=== PATIENT | male | born 1975 | race African-American/Black ===

== ENCOUNTER 2016-06-02 09:10 | Day surgery (SDC) | payer MEDICAID ==
[2016-06-02] MEDS ORDERED: LACTATED RINGERS 1,000 ML IV ONE (09:59)
[2016-06-02] MEDS ORDERED: PROPOFOL 200 MG/20 ML VIAL IVP ONE (10:50)
[2016-06-02] MEDS ORDERED: MIDAZOLAM 2 MG/2 ML VIAL IVP ONE (10:50)
[2016-06-02] MEDS ORDERED: LIDOCAINE-MPF 2% 5 ML VIAL IM ONE (10:50)
== END 2016-06-02 09:11 | disposition home or self-care (01) ==
PROC: 0DBH8ZX Excision of Cecum, Via Natural or Artificial Opening Endoscopic, Diagnostic (ICD-10-PCS; principal; 2016-06-02 10:30)
DX: K57.30 Diverticulosis of large intestine without perforation or abscess without bleeding (principal); R19.7 Diarrhea, unspecified; K92.1 Melena; R10.32 Left lower quadrant pain; K64.8 Other hemorrhoids; I10 Essential (primary) hypertension; G47.30 Sleep apnea, unspecified; Z87.891 Personal history of nicotine dependence; E66.01 Morbid (severe) obesity due to excess calories; Z68.43 Body mass index [BMI] 50.0-59.9, adult
CPT/HCPCS: 45380; J7120

== ENCOUNTER 2016-07-30 13:46 | Emergency (ER) | payer MEDICAID ==
[2016-07-30] MEDS ORDERED: HYDROmorphone 1 MG/ML SYRINGE IVP STA (14:40)
[2016-07-30] MEDS ORDERED: LORazepam 2 MG/ML SYRINGE IVP STA (14:49)
[2016-07-30] MEDS ORDERED: HYDROmorphone 1 MG/ML SYRINGE ONE (14:52)
[2016-07-30] MEDS ORDERED: LORazepam 2 MG/ML SYRINGE ONE (14:53)
[2016-07-30] MEDS ORDERED: IOPAMIDOL-300 100 ML VIAL IVP ONE (15:42)
[2016-07-30] MEDS ORDERED: DICYCLOMINE 10 MG CAPSULE PO STA (16:48)
[2016-07-30] MEDS ORDERED: oxyCODONE 5 MG TABLET PO STA (16:48)
[2016-07-30] MEDS ORDERED: DICYCLOMINE 10 MG CAPSULE PO ONE (16:55)
[2016-07-30] MEDS ORDERED: oxyCODONE 5 MG TABLET ONE (16:55)
== END 2016-07-30 18:40 | disposition home or self-care (01) ==
DX: R07.89 Other chest pain (principal); R10.84 Generalized abdominal pain; I10 Essential (primary) hypertension; G47.30 Sleep apnea, unspecified; M10.9 Gout, unspecified; F17.200 Nicotine dependence, unspecified, uncomplicated; Z87.19 Personal history of other diseases of the digestive system
CPT/HCPCS: 36415; 71275; 74177; 80053; 83690; 84484; 85025; 93005; 93010; 96374; 96375; 99284; A9270; J1170; J2060; Q9967

== ENCOUNTER 2016-08-14 15:12 | Outpatient (CLI) | payer MEDICAID | END 2016-08-14 15:13 | disposition critical access hospital (66) | DX: M54.9 Dorsalgia, unspecified (principal); V87.8XXA Person injured in other specified noncollision transport accidents involving motor vehicle (traffic), initial encounter; Y92.413 State road as the place of occurrence of the external cause | CPT/HCPCS: A0425; A0429 ==

== ENCOUNTER 2016-08-14 15:35 | Emergency (ER) | payer MEDICAID ==
[2016-08-14] MEDS ORDERED: SODIUM CHLORIDE 0.9% 1,000 ML IV ONE (15:59)
[2016-08-14] MEDS ORDERED: ONDANSETRON 4 MG/2 ML VIAL IVP STA (15:59)
[2016-08-14] MEDS ORDERED: LORazepam 2 MG/ML SYRINGE IVP STA (15:59)
[2016-08-14] MEDS ORDERED: LORazepam 2 MG/ML SYRINGE ONE (16:06)
[2016-08-14] MEDS ORDERED: ONDANSETRON 4 MG/2 ML VIAL ONE (16:07)
[2016-08-14] MEDS ORDERED: IOPAMIDOL-300 100 ML VIAL IVP ONE (17:18)
[2016-08-14] MEDS ORDERED: KETOROLAC 60 MG/2 ML VIAL IVP STA (17:33)
[2016-08-14] MEDS ORDERED: KETOROLAC 30 MG/ML VIAL ONE (17:40)
== END 2016-08-14 19:29 | disposition home or self-care (01) ==
DX: S30.0XXA Contusion of lower back and pelvis, initial encounter (principal); V48.6XXA Car passenger injured in noncollision transport accident in traffic accident, initial encounter; Y92.488 Other paved roadways as the place of occurrence of the external cause; G40.909 Epilepsy, unspecified, not intractable, without status epilepticus; I10 Essential (primary) hypertension; G47.30 Sleep apnea, unspecified; Z87.19 Personal history of other diseases of the digestive system; F17.200 Nicotine dependence, unspecified, uncomplicated
CPT/HCPCS: 36415; 70450; 71260; 72125; 74177; 80053; 81003; 83690; 85025; 85610; 85730; 93005; 93010; 96361; 96374; 96375; 99284; 99285; J2060; Q9967

== ENCOUNTER 2016-11-09 15:31 | Emergency (ER) | payer MEDICAID ==
[2016-11-09 15:47] VITALS: BP 150/97
[2016-11-09] MEDS ORDERED: LORazepam 0.5 MG TABLET PO STA (16:35)
--- NOTE | 2016-11-09 16:36 | ED Physician Documentation ---
PD HPI MHE - Stated complaint Stated Complaint: MHE - Chief complaint Chief Complaint: MHE - History obtained from History obtained from: Patient - History of Present Illness Primary symptom: Other (40-year-old gentleman with schizoaffective disorder presents with some delusions and is having marital difficulties. Denies suicidal ideation.) Review of Systems Constitutional: denies: Fever, Chills Nose: reports: Reviewed and negative Cardiac: denies: Chest pain / pressure, Palpitations Respiratory: denies: Dyspnea, Cough PD PAST MEDICAL HISTORY - Past Medical History Past Medical History: Yes Cardiovascular: Hypertension Respiratory: None, Sleep apnea Neuro: CVA, Seizure disorder Endocrine/Autoimmune: None GI: None, Diverticulitis : None HEENT: None Psych: Depression, Anxiety, Schizophrenia Musculoskeletal: None, Gout, Other Derm: None - Past Surgical History Past Surgical History: Yes General: Cholecystectomy - Present Medications Home Medications: Ambulatory Orders Medication Instructions Recorded Confirmed Levetiracetam [Keppra] 500 mg ORAL BID 04/07/15 11/09/16 Lisinopril 40 mg ORAL DAILY 04/07/15 11/09/16 QUEtiapine [SEROquel] 200 mg PO BID 11/04/15 11/09/16 cloNIDine [Catapres] 0.1 mg PO BID 11/04/15 11/09/16 Polyethylene Glycol 3350 [Miralax] 17 gm PO DAILY #14 packet 07/30/16 11/09/16 - Allergies Allergies/Adverse Reactions: Allergies Allergy/AdvReac Type Severity Reaction Status Date / Time No Known Drug Allergies Allergy Verified 08/14/16 15:45 - Social History Does the pt smoke?: Yes Smoking Status: Current every day smoker Does the pt drink ETOH?: No Does the pt have substance abuse?: No - Immunizations Immunizations are current?: Yes Immunizations: TDAP current <10years - POLST Patient has POLST: No PD ED PE NORMAL - Vitals Vital signs reviewed: Yes - General General: Alert and oriented X 3, Other (Pretty normal affect, somewhat delusional, complains of people breaking into his house and what not. Very cooperative though.) - HEENT HEENT: PERRL, EOMI - Neuro Neuro: Alert and oriented X 3, splunk developer 2-12 intact, No motor deficit, No sensory deficit, Normal speech Results - Vitals Vitals: Vital Signs - 24 hr 11/09/16 15:41 Temperature 35.7 C L Heart Rate 108 H Respiratory 18 Rate Blood Pressure 150/97 H O2 Saturation 99 Oxygen O2 Source Room air PD MEDICAL DECISION MAKING - ED course ED course: 40-year-old gentleman with schizoaffective disorder, recent decrease in his Seroquel dosing, and he is a little hypervigilant and delusional, but is not suicidal and the agrees he seems okay and can go home, seen extensively by the healthcare social worker and outpatient follow-up advised. Departure - Departure Disposition: Home, Self Care Clinical Impression: Schizoaffective disorder Qualifiers: Schizoaffective disorder type: bipolar Qualified Code(s): F25.0 - Schizoaffective disorder, bipolar type Condition: Good Record reviewed to determine appropriate education?: Yes Instructions: ED Schizo Affective Disorder Comments: Call your doctor to arrange a follow-up appointment, make the next available appointment. In the interim, return anytime if worse or if new symptoms develop. Your blood pressure was elevated today on check into the emergency department. This does not mean that you have hypertension, it is a common phenomenon to come to the emergency department and have elevated blood pressure. I recommend that she see her primary care physician within the week to have it rechecked when you are feeling better.
[2016-11-09] MEDS ORDERED: LORazepam 0.5 MG TABLET ONE (16:39)
== END 2016-11-09 17:04 | disposition home or self-care (01) ==
LOC: ED 15:31
DX: F25.0 Schizoaffective disorder, bipolar type (principal); I10 Essential (primary) hypertension; F17.200 Nicotine dependence, unspecified, uncomplicated; Z86.73 Personal history of transient ischemic attack (TIA), and cerebral infarction without residual deficits
CPT/HCPCS: 99283; A9270

== ENCOUNTER 2018-10-19 10:44 | Outpatient (CLI) | payer MEDICAID | END 2018-10-19 10:45 | disposition critical access hospital (66) | LOC: EMS 10:44 | PROVIDERS: ATTEND Surgery | DX: R06.00 Dyspnea, unspecified (principal); F41.9 Anxiety disorder, unspecified; R51 Headache | CPT/HCPCS: A0425; A0429; A0999 ==

== ENCOUNTER 2018-10-19 11:04 | Emergency (ER) | payer MEDICAID ==
[2018-10-19 11:34] LABS: BASOPHILS % (AUTO) 0.4 %; EOSINOPHILS # (AUTO) 0.1 10^3/uL (0.0-0.7); EOSINOPHILS % (AUTO) 1.9 %; HGB - HEMOGLOBIN 13.9 g/dL (14.0-18.0); LYMPHOCYTES # (AUTO) 2.1 10^3/uL (1.5-3.5); LYMPHOCYTES % (AUTO) 27.8 %; MEAN CORPUSCULAR HGB CONC 32.3 g/dL (32.0-36.0); MEAN CORPUSCULAR VOLUME 86.7 fL (80.0-94.0); MEAN PLATELET VOLUME 11.5 fL (7.4-11.4); MONOCYTES # (AUTO) 1.1 10^3/uL (0.0-1.0); MONOCYTES % (AUTO) 14.7 %; NEUTROPHILS % (AUTO) 54.3 %; PLT - PLATELET COUNT 257 10^3/uL (130-450); RED BLOOD COUNT 4.96 10^6/uL (4.70-6.10); RED CELL DISTRIBUTION WIDTH 13.5 % (12.0-15.0); WHITE BLOOD COUNT 7.4 x10^3/uL (4.8-10.8)
[2018-10-19 12:06] LABS: ACETAMINOPHEN < 10 ug/mL (10-30); ALBUMIN 4.1 g/dL (3.2-5.5); ALBUMIN/GLOBULIN RATIO 1.2 (1.0-2.2); ALKALINE PHOSPHATASE 74 IU/L (42-121); ALT ALANINE AMINOTRANSFERASE 21 IU/L (10-60); AST ASPARTATE AMINOTRANSFERASE 15 IU/L (10-42); BILIRUBIN,TOTAL 1.1 mg/dL (0.2-1.0); BUN - BLOOD UREA NITROGEN 10 mg/dL (6-20); CALCIUM 8.7 mg/dL (8.5-10.3); CARBON DIOXIDE - CO2 25 mmol/L (21-32); CHLORIDE 101 mmol/L (101-111); CREATININE 0.8 mg/dL (0.6-1.2); GFR - MDRD 129 (>89); GLUCOSE 129 mg/dL (70-100); LIPASE 26 U/L (22-51); SALICYLATE < 6.0 mg/dL; SODIUM 139 mmol/L (135-145); TOTAL PROTEIN 7.5 g/dL (6.7-8.2)
[2018-10-19 12:08] VITALS: BP 178/110
[2018-10-19 12:46] LABS: MUDS CUTOFF CONCENTRATIONS CUTOFF CONC BELOW:
[2018-10-19 12:47] LABS: BILIRUBIN,URINE NEGATIVE (NEGATIVE); GLUCOSE, URINE (UA) NEGATIVE (NEGATIVE); KETONES,URINE (UA) NEGATIVE (NEGATIVE); LEUKOCYTE ESTERASE, URINE NEGATIVE (NEGATIVE); NITRITE,URINE NEGATIVE (NEGATIVE); OCCULT BLOOD,URINE NEGATIVE (NEGATIVE); PH,URINE 6.5 PH (5.0-7.5); PROTEIN,URINE NEGATIVE (NEGATIVE); UROBILINOGEN,URINE 0.2 (NORMAL) E.U./dL (NORMAL)
[2018-10-19 12:48] LABS: CLARITY,URINE CLEAR (CLEAR)
[2018-10-19 13:08] LABS: AMPHETAMINE SCREEN,URINE NEGATIVE (NEGATIVE); BENZODIAZEPINES SCREEN, URINE NEGATIVE (NEGATIVE); COCAINE SCREEN URINE NEGATIVE (NEGATIVE); METHADONE SCREEN, URINE NEGATIVE (NEGATIVE); METHAMPHETAMINES SCREEN, URINE POSITIVE (NEGATIVE); OPIATE SCREEN, URINE NEGATIVE (NEGATIVE); OXYCODONE SCREEN, URINE NEGATIVE (NEGATIVE); PROPOXYPHENE SCREEN, URINE NEGATIVE (NEGATIVE); TRICYCLIC ANTIDEPRESSANT,URINE POSITIVE (NEGATIVE)
--- NOTE | 2018-10-19 13:29 | ED Physician Documentation ---
PD HPI MHE - Stated complaint Stated Complaint: ANXIETY ATTACK - Chief complaint Chief Complaint: MHE - History of Present Illness Primary symptom: Anxiety Timing - onset: How many hours ago (Just prior to arrival.) - Additional information Additional information: The patient is a 42-year-old male with history of schizophrenia, pseudoseizures, and hypertension, who presents via ambulance for mental health evaluation. Just prior to arrival the patient became uncontrollably agitated. He tells me, "I had an anxiety attack." There is reportedly stress in the home, with the patie nt stating he has been living with his ex- who currently has a boyfriend. He reports that yesterday his ex-'s boyfriend gave him an unknown pill to help "calm me down." It is unclear what specifically triggered the episode today. Review of Systems Constitutional: denies: Fever Nose: denies: Congestion Throat: denies: Sore throat Cardiac: denies: Chest pain / pressure Respiratory: denies: Dyspnea, Cough GI: denies: Abdominal Pain, Nausea, Vomiting : denies: Dysuria Skin: denies: Lesions Musculoskeletal: denies: Back pain Neurologic: denies: Focal weakness, Numbness Psychiatric: reports: Anxiety. denies: Suicidal, Homicidal PD PAST MEDICAL HISTORY - Past Medical History Cardiovascular: Hypertension Respiratory: Sleep apnea Endocrine/Autoimmune: None GI: None, Diverticulitis : None HEENT: None Psych: Depression, Anxiety, Schizophrenia Musculoskeletal: None, Gout, Other Derm: None - Past Surgical History Past Surgical History: Yes General: Cholecystectomy - Present Medications Home Medications: Ambulatory Orders Medication Instructions Recorded Confirmed Levetiracetam [Keppra] 500 mg ORAL BID 04/07/15 11/09/16 Lisinopril 40 mg ORAL DAILY 04/07/15 11/09/16 QUEtiapine [SEROquel] 200 mg PO BID 11/04/15 11/09/16 cloNIDine [Catapres] 0.1 mg PO BID 11/04/15 11/09/16 Polyethylene Glycol 3350 [Miralax] 17 gm PO DAILY #14 packet 07/30/16 11/09/16 - Allergies Allergies/Adverse Reactions: Allergies Allergy/AdvReac Type Severity Reaction Status Date / Time No Known Drug Allergies Allergy Verified 10/19/18 11:12 - Social History Does the pt smoke?: Yes Smoking Status: Current every day smoker Does the pt drink ETOH?: No Does the pt have substance abuse?: No - Immunizations Immunizations are current?: Yes Immunizations: TDAP current <10years - POLST Patient has POLST: No PD ED PE NORMAL - Vitals Vital signs reviewed: Yes (hypertensive) - General General: Alert and oriented X 3, Well developed/nourished, Other (Obese) - HEENT HEENT: Atraumatic, PERRL, EOMI, Pharynx benign - Neck Neck: Supple, no meningeal sign, No adenopathy - Cardiac Cardiac: RRR - Respiratory Respiratory: No respiratory distress, Clear bilaterally - Abdomen Abdomen: Soft, Non tender - Back Back: No spinal TTP - Derm Derm: No rash - Extremities Extremities: No tenderness to palpate, No edema - Neuro Neuro: Alert and oriented X 3, No motor deficit, No sensory deficit, Normal spe ech PD ED PE EXPANDED - Psych Psych: Agitated (Initially agitated, but became calm after about one half hour in the emergency department.). No: Suicidal, Homicidal Results - Vitals Vitals: Oxygen O2 Source Room air - Labs Labs: Laboratory Tests 10/19/18 10/19/18 10/19/18 11:13 11:13 11:13 WBC 7.4 RBC 4.96 Hgb 13.9 L Hct 43.0 MCV 86.7 MCH 28.0 MCHC 32.3 RDW 13.5 Plt Count 257 MPV 11.5 H Neut # (Auto) 4.0 Lymph # (Auto) 2.1 Giles # (Auto) 1.1 H Eos # (Auto) 0.1 Baso # (Auto) 0.0 Absolute Nucleated RBC 0.00 Nucleated RBC % 0.0 Sodium 139 Potassium 3.4 L Chloride 101 Carbon Dioxide 25 Anion Gap 13.0 BUN 10 Creatinine 0.8 Estimated GFR (MDRD) 129 Glucose 129 H Calcium 8.7 Total Bilirubin 1.1 H AST 15 ALT 21 Alkaline Phosphatase 74 Total Protein 7.5 Albumin 4.1 Globulin 3.4 Albumin/Globulin Ratio 1.2 Lipase 26 TSH 1.49 Urine Color Urine Clarity Urine pH Ur Specific [place] Urine Protein Urine Glucose (UA) Urine Ketones Urine Occult Blood Urine Nitrite Urine Bilirubin Urine Urobilinogen Ur Leukocyte Esterase Ur Microscopic Review Urine Culture Comments Salicylates < 6.0 Urine Opiates Screen Ur Oxycodone Screen Urine Methadone Screen Ur Propoxyphene Screen Acetaminophen < 10 L Ur Barbiturates Screen Ur Tricyclics Screen Ur Phencyclidine Scrn Ur Amphetamine Screen U Methamphetamines Scrn U Benzodiazepines Scrn Urine Cocaine Screen U Cannabinoids Screen Ethyl Alcohol < 5.0 10/19/18 12:36 WBC RBC Hgb Hct MCV MCH MCHC RDW Plt Count MPV Neut # (Auto) Lymph # (Auto) Giles # (Auto) Eos # (Auto) Baso # (Auto) Absolute Nucleated RBC Nucleated RBC % Sodium Potassium Chloride Carbon Dioxide Anion Gap BUN Creatinine Estimated GFR (MDRD) Glucose Calcium Total Bilirubin AST ALT Alkaline Phosphatase Total Protein Albumin Globulin Albumin/Globulin Ratio Lipase TSH Urine Color YELLOW Urine Clarity CLEAR Urine pH 6.5 Ur Specific [place] 1.015 Urine Protein NEGATIVE Urine Glucose (UA) NEGATIVE Urine Ketones NEGATIVE Urine Occult Blood NEGATIVE Urine Nitrite NEGATIVE Urine Bilirubin NEGATIVE Urine Urobilinogen 0.2 (NORMAL) Ur Leukocyte Esterase NEGATIVE Ur Microscopic Review NOT INDICATED Urine Culture Comments NOT INDICATED Salicylates Urine Opiates Screen NEGATIVE Ur Oxycodone Screen NEGATIVE Urine Methadone Screen NEGATIVE Ur Propoxyphene Screen NEGATIVE Acetaminophen Ur Barbiturates Screen NEGATIVE Ur Tricyclics Screen POSITIVE H Ur Phencyclidine Scrn NEGATIVE Ur Amphetamine Screen NEGATIVE U Methamphetamines Scrn POSITIVE H U Benzodiazepines Scrn NEGATIVE Urine Cocaine Screen NEGATIVE U Cannabinoids Screen POSITIVE H Ethyl Alcohol PD MEDICAL DECISION MAKING - ED course Complexity details: reviewed results, re-evaluated patient, considered differential, d/w patient ED course: The patient's presentation is significant for acute anxiety reaction with agitation. His history suggests chronic stress, but it is unclear what the specific proximate stressor was that caused today's episode. His urine tox screen is positive for trace cyclics, methamphetamine, and cannabinoids. He admits to smoking marijuana, but denies the use of methamphetamine. When told of the drug screen result he becomes angry that the pill given to him yesterday may have been methamphetamine. He declined to see the biomedical engineer, stating that he would follow-up with his counselor tomorrow as scheduled. At the time of discharge from the emergency department he is calm, cooperative, and appears to understand our conversation. I discussed with him potentially worrisome signs or symptoms that should prompt reevaluation. Departure - Departure Disposition: 01 Home, Self Care Clinical Impression: Anxiety as acute reaction to gross stress Condition: Stable Instructions: ED Stress React Comments: Continue your previously prescribed medications. Avoid taking nonprescription medications. Follow-up with your primary provider at [facility] tomorrow as planned. Return to the emergency department if you develop increasing anxiety, recurrent panic attack, or otherwise worsening symptoms. Discharge Date/Time: 10/19/18 13:33
== END 2018-10-19 13:33 | disposition home or self-care (01) ==
LOC: EDUNIT# → ED 11:04
DX: F41.1 Generalized anxiety disorder (principal); F43.0 Acute stress reaction; F20.9 Schizophrenia, unspecified; F32.9 Major depressive disorder, single episode, unspecified; I10 Essential (primary) hypertension; F17.200 Nicotine dependence, unspecified, uncomplicated
CPT/HCPCS: 36415; 80053; 80306; 80307; 80320; 80329; 81001; 81003; 83690; 84443; 85025; 87086; 99283; 99284

== ENCOUNTER 2019-03-16 12:39 | Outpatient (CLI) | payer MEDICAID | END 2019-03-16 12:40 | disposition EMS.NT | LOC: EMS 12:39 | PROVIDERS: ATTEND Surgery | DX: F41.9 Anxiety disorder, unspecified (principal) ==

== ENCOUNTER 2019-04-08 16:15 | Outpatient (CLI) | payer MEDICAID | END 2019-04-08 16:16 | disposition critical access hospital (66) | LOC: EMS 16:15 | PROVIDERS: ATTEND Surgery | DX: R56.9 Unspecified convulsions (principal); R51 Headache; T42.6X6A Underdosing of other antiepileptic and sedative-hypnotic drugs, initial encounter; Z91.128 Patient's intentional underdosing of medication regimen for other reason; Y92.032 Bedroom in apartment as the place of occurrence of the external cause | CPT/HCPCS: A0425; A0429; A0999 ==

== ENCOUNTER 2019-04-08 16:33 | Emergency (ER) | payer MEDICAID ==
[2019-04-08] MEDS ORDERED: cloNIDine 0.1 MG TABLET PO STA (16:58)
[2019-04-08] MEDS ORDERED: levETIRAcetam 250 MG TABLET PO STA (16:58)
--- NOTE | 2019-04-08 17:01 | ED Physician Documentation ---
PD HPI SEIZURE - Stated complaint Stated Complaint: SZ - Chief complaint Chief Complaint: Neuro - History obtained from History obtained from: Patient - History of Present Illness Timing - onset: Other (43-year-old gentleman with history of seizure disorder ran out of his Keppra about a month ago. Had a seizure today without injury. He is also out of his clonidine. He has returned to baseline. He says he has a headache but that is normal after a seizure for him.) Review of Systems Constitutional: denies: Fever, Chills Cardiac: denies: Chest pain / pressure, Palpitations Respiratory: denies: Dyspnea, Cough GI: denies: Abdominal Pain PD PAST MEDICAL HISTORY - Past Medical History Cardiovascular: Hypertension Respiratory: Sleep apnea Endocrine/Autoimmune: None GI: None, Diverticulitis : None HEENT: None Psych: Depression, Anxiety, Schizophrenia Musculoskeletal: None, Gout, Other Derm: None - Past Surgical History Past Surgical History: Yes General: Cholecystectomy - Present Medications Home Medications: Ambulatory Orders Medication Instructions Recorded Confirmed Levetiracetam [Keppra] 500 mg ORAL BID 04/07/15 11/09/16 QUEtiapine [SEROquel] 20 mg PO DAILY 11/04/15 11/09/16 FLUoxetine [PROzac] 20 mg PO DAILY 04/08/19 04/08/19 Haloperidol 10 mg ORAL DAILY 04/08/19 04/08/19 Prazosin [Minipress] 2 mg PO DAILY 04/08/19 04/08/19 cloNIDine [Catapres] 0.2 mg PO BID #60 tablet 04/08/19 levETIRAcetam [Keppra] 500 mg PO BID #60 tablet 04/08/19 - Allergies Allergies/Adverse Reactions: Allergies Allergy/AdvReac Type Severity Reaction Status Date / Time No Known Drug Allergies Allergy Verified 10/19/18 11:12 - Social History Does the pt smoke?: Yes Smoking Status: Current every day smoker Does the pt drink ETOH?: No Does the pt have substance abuse?: No - Immunizations Immunizations are current?: Yes Immunizations: TDAP current <10years - POLST Patient has POLST: No PD ED PE NORMAL - Vitals Vital signs reviewed: Yes - General General: Alert and oriented X 3, No acute distress - HEENT HEENT: PERRL, EOMI - Neck Neck: Supple, no meningeal sign, No bony TTP - Neuro Neuro: Alert and oriented X 3, pattern vault clerk 2-12 intact, No motor deficit, No sensory deficit, Normal speech Results - Vitals Vitals: Vital Signs - 24 hr 04/08/19 16:37 Temperature 36.4 C L Heart Rate 88 Respiratory 18 Rate Blood Pressure 150/126 H O2 Saturation 97 Oxygen O2 Source Room air PD MEDICAL DECISION MAKING - ED course ED course: 43-year-old gentleman with history of seizure disorder had a seizure today due to noncompliance, he is administered his Keppra here and a refill was given as well as a refill for clonidine. Departure - Departure Disposition: Home, Self Care Clinical Impression: Grand mal seizure Condition: Good Record reviewed to determine appropriate education?: Yes Instructions: ED Seizure Recurrent Prescriptions: cloNIDine [Catapres] 0.2 mg PO BID #60 tablet levETIRAcetam [Keppra] 500 mg PO BID #60 tablet Comments: It is imperative to follow-up with your primary care physician for refills and further evaluation. Return for new or worsening symptoms. No driving for at least 6 months given the seizure today.
[2019-04-08 17:26] VITALS: BP 176/105
== END 2019-04-08 17:25 | disposition home or self-care (01) ==
LOC: EDUNIT# → ED 16:33
DX: G40.409 Other generalized epilepsy and epileptic syndromes, not intractable, without status epilepticus (principal); T42.6X6A Underdosing of other antiepileptic and sedative-hypnotic drugs, initial encounter; I10 Essential (primary) hypertension; F17.200 Nicotine dependence, unspecified, uncomplicated
CPT/HCPCS: 99283; A9270

== ENCOUNTER 2019-10-04 04:15 | Emergency (ER) | payer MEDICAID ==
[2019-10-04 04:30] VITALS: BP 195/103
--- NOTE | 2019-10-04 04:58 | ED Physician Documentation ---
PD HPI HEENT - Stated complaint Stated Complaint: TOOTH PX - Chief complaint Chief Complaint: Heent - History obtained from History obtained from: Patient - History of Present Illness Timing - onset: Last night Timing - details: Gradual onset Pain level now: 8 Location: Tooth Worsens: Other (no exacerbating factors) Associated symptoms: No: Fever Recently seen: Not recently seen - Additional information Additional information: c/o dental pain, right upper and lower teeth (not a specific tooth), pain started last night. he has an appointment to see his dentist this coming Wednesday Review of Systems Constitutional: reports: Reviewed and negative Throat: reports: Dental pain / toothache PD PAST MEDICAL HISTORY - Past Medical History Cardiovascular: Hypertension Respiratory: Sleep apnea Endocrine/Autoimmune: None GI: None, Diverticulitis : None HEENT: None Psych: Depression, Anxiety, Schizophrenia Musculoskeletal: None, Gout, Other Derm: None - Past Surgical History Past Surgical History: Yes General: Cholecystectomy - Present Medications Home Medications: Ambulatory Orders Medication Instructions Recorded Confirmed Levetiracetam [Keppra] 500 mg ORAL BID 04/07/15 11/09/16 QUEtiapine [SEROquel] 20 mg PO DAILY 11/04/15 11/09/16 FLUoxetine [PROzac] 20 mg PO DAILY 04/08/19 04/08/19 Prazosin [Minipress] 2 mg PO DAILY 04/08/19 04/08/19 cloNIDine [Catapres] 0.2 mg PO BID #60 tablet 04/08/19 haloperidoL [Haloperidol] 10 mg ORAL DAILY 04/08/19 04/08/19 levETIRAcetam [Keppra] 500 mg PO BID #60 tablet 04/08/19 Clindamycin HCl [Clindamycin 300MG 300 mg PO Q6H #28 capsule 10/04/19 CAP] Ondansetron Odt [Zofran] 4 mg TL Q6H PRN #10 tablet 10/04/19 Oxycodone HCl/Acetaminophen 1 - 2 each PO Q6H PRN #14 tablet 10/04/19 [Percocet 5-325 mg Tablet] - Allergies Allergies/Adverse Reactions: Allergies Allergy/AdvReac Type Severity Reaction Status Date / Time No Known Drug Allergies Allergy Verified 10/04/19 04:30 - Social History Does the pt smoke?: Yes Smoking Status: Current every day smoker Does the pt drink ETOH?: No Does the pt have substance abuse?: No - Immunizations Immunizations are current?: Yes Immunizations: TDAP current <10years - POLST Patient has POLST: No PD ED PE NORMAL - Vitals Vital signs reviewed: Yes - General General: Alert and oriented X 3, No acute distress, Other (obese) - HEENT HEENT: Moist mucous membranes, Pharynx benign, Dentition benign, Other (mild tenderness to percussion right upper and lower 1st and 2nd molars without swelling or erythema) Results - Vitals Vitals: Oxygen O2 Source Room air PD MEDICAL DECISION MAKING - ED course Complexity details: considered differential, d/w patient Departure - Departure Disposition: Home, Self Care Clinical Impression: Pain, dental Condition: Good Instructions: ED Tooth Pain Prescriptions: Clindamycin HCl [Clindamycin 300MG CAP] 300 mg PO Q6H #28 capsule Ondansetron Odt [Zofran] 4 mg TL Q6H PRN #10 tablet PRN Reason: Nausea / Vomiting Oxycodone HCl/Acetaminophen [Percocet 5-325 mg Tablet] 1 - 2 each PO Q6H PRN #14 tablet PRN Reason: pain Comments: Follow up with the dentist this Wednesday as scheduled Discharge Date/Time: 10/04/19 06:05
[2019-10-04] MEDS ORDERED: oxyCODONE 5 MG TABLET PO STA (05:45)
[2019-10-04] MEDS ORDERED: ONDANSETRON ODT 4 MG TABLET TL STA (05:45)
[2019-10-04] MEDS ORDERED: CLINDAMYCIN 150 MG CAPSULE PO STA (05:45)
== END 2019-10-04 06:05 | disposition home or self-care (01) ==
LOC: ED 04:15
DX: K08.89 Other specified disorders of teeth and supporting structures (principal); I10 Essential (primary) hypertension; F17.200 Nicotine dependence, unspecified, uncomplicated
CPT/HCPCS: 99283; A9270; Q0162

== ENCOUNTER 2019-12-05 23:21 | Outpatient (CLI) | payer MEDICAID | END 2019-12-05 23:22 | disposition critical access hospital (66) | LOC: EMS 23:21 | PROVIDERS: ATTEND Surgery | DX: R06.00 Dyspnea, unspecified (principal); R41.82 Altered mental status, unspecified | CPT/HCPCS: A0425; A0429; A0999 ==

== ENCOUNTER 2019-12-06 06:36 | Outpatient (CLI) | payer MEDICAID | END 2019-12-06 06:37 | disposition critical access hospital (66) | LOC: EMS 06:36 | PROVIDERS: ATTEND Surgery | DX: R06.00 Dyspnea, unspecified (principal); F41.9 Anxiety disorder, unspecified | CPT/HCPCS: A0425; A0429; A0999 ==

== ENCOUNTER 2019-12-06 06:48 | Observation (INO) | payer MEDICAID ==
--- NOTE | 2019-12-06 07:08 | ED Physician Documentation ---
PD HPI DYSPNEA - Stated complaint Stated Complaint: PANIC ATTACK - Chief complaint Chief Complaint: Resp - History obtained from History obtained from: Patient - History of Present Illness Timing - onset: Last night (increased overnight and into today) Timing - onset during: Rest, Light activity Timing - details: Gradual onset (He was seen last night for a feeling of anxiety and dyspnea after some marijuana edibles. There is no report of sore throat or cough at that time. He was noted to be a little tachycardic. He declined any lab tests or IV medications. He had had Benadryl orally prior to arrival then.), Still present (He has had increased feeling of sore throat and difficulty swallowing and breathing overnight into this morning. He denies cough. He is still feeling anxious.) Inciting event(s): No: Out of meds, URI Improved by: Sitting up. No: Benadryl Worsened by: Laying flat, Other (swallowing) Associated symptoms: Wheezing, Other (throat/anterior neck pain). No: Fever, Cough Similar symptoms before: No diagnosis (History of anxiety episodes remotely in the past. Also history of seizure disorder) Recently seen: Emergency Dept (last evening for anxiety) Review of Systems Constitutional: denies: Fever Throat: reports: Sore throat, Other (feeling of swelling in throat). denies: Dental pain / toothache Cardiac: denies: Chest pain / pressure Respiratory: reports: Dyspnea. denies: Cough GI: denies: Vomiting, Diarrhea Skin: denies: Rash PD PAST MEDICAL HISTORY - Past Medical History Past Medical History: Yes Cardiovascular: Hypertension Respiratory: Sleep apnea Neuro: None Endocrine/Autoimmune: None GI: None, Diverticulitis : None HEENT: None Psych: Depression, Anxiety, Schizophrenia Musculoskeletal: None, Gout, Other Derm: None - Past Surgical History Past Surgical History: Yes General: Cholecystectomy - Present Medications Home Medications: Ambulatory Orders Medication Instructions Recorded Confirmed Levetiracetam [Keppra] 500 mg ORAL BID 04/07/15 11/09/16 QUEtiapine [SEROquel] 20 mg PO DAILY 11/04/15 11/09/16 FLUoxetine [PROzac] 20 mg PO DAILY 04/08/19 04/08/19 Prazosin [Minipress] 2 mg PO DAILY 04/08/19 04/08/19 cloNIDine [Catapres] 0.2 mg PO BID #60 tablet 04/08/19 haloperidoL [Haloperidol] 10 mg ORAL DAILY 04/08/19 04/08/19 levETIRAcetam [Keppra] 500 mg PO BID #60 tablet 04/08/19 Clindamycin HCl [Clindamycin 300MG 300 mg PO Q6H #28 capsule 10/04/19 CAP] Ondansetron Odt [Zofran] 4 mg TL Q6H PRN #10 tablet 10/04/19 Oxycodone HCl/Acetaminophen 1 - 2 each PO Q6H PRN #14 tablet 10/04/19 [Percocet 5-325 mg Tablet] - Allergies Allergies/Adverse Reactions: Allergies Allergy/AdvReac Type Severity Reaction Status Date / Time No Known Drug Allergies Allergy Verified 12/06/19 06:54 - Social History Does the pt smoke?: Yes Smoking Status: Current every day smoker Does the pt drink ETOH?: Yes Does the pt have substance abuse?: Yes - Immunizations Immunizations are current?: Yes Immunizations: TDAP current <10years - POLST Patient has POLST: No PD ED PE NORMAL - Vitals Vital signs reviewed: Yes - General General: Alert and oriented X 3, Well developed/nourished, Other (somewhat sleepy but answers questions and opens eyes to verbal. Has some garbled voice, and appears hurting with swallowing. Anterior neck tender but not feeling swollen. ) - HEENT HEENT: Pharynx benign (pharynx that I can see appears normal. ), Other (Garbled sounding voice consistent with swelling in the oropharynx or lower) - Neck Neck: Supple, no meningeal sign, No adenopathy, Other (Mild stridorous sound.) - Cardiac Cardiac: No murmur. No: RRR (Tachycardic but regular) - Respiratory Respiratory: Clear bilaterally - Abdomen Abdomen: Soft, Non tender - Back Back: No CVA TTP - Derm Derm: Normal color, Warm and dry - Neuro Neuro: Alert and oriented X 3, Normal speech Results - Vitals Vitals: Vital Signs - 24 hr 12/06/19 12/06/19 12/06/19 06:54 06:57 07:22 Temperature 36.6 C Heart Rate 139 H 136 H 132 H Respiratory 30 H 28 H 29 H Rate Blood Pressure 224/95 H 154/70 H 143/95 H O2 Saturation 95 95 95 12/06/19 12/06/19 12/06/19 08:05 08:09 08:17 Temperature Heart Rate 126 H 124 H 126 H Respiratory 31 H 32 H 31 H Rate Blood Pressure 154/94 H 157/93 H O2 Saturation 100 100 12/06/19 12/06/19 12/06/19 08:26 08:50 09:33 Temperature Heart Rate 124 H 120 H 110 H Respiratory 28 H 25 H 22 Rate Blood Pressure 153/102 H 157/96 H 131/95 H O2 Saturation 99 98 100 12/06/19 10:06 Temperature Heart Rate 105 H Respiratory 20 Rate Blood Pressure 171/112 H O2 Saturation 98 Oxygen O2 Source Nasal cannula - Labs Labs: Laboratory Tests 12/06/19 12/06/19 12/06/19 07:33 07:33 07:45 WBC 19.7 H RBC 4.40 L Hgb 12.5 L Hct 37.3 L MCV 84.8 MCH 28.4 MCHC 33.5 RDW 12.8 Plt Count 222 MPV 11.0 Neut # (Auto) 16.8 H Lymph # (Auto) 1.2 L Briscoe # (Auto) 1.5 H Eos # (Auto) 0.0 Baso # (Auto) 0.1 Absolute Nucleated RBC 0.00 Nucleated RBC % 0.0 Bld Gas Analysis Time Sample Site ABG pH ABG pCO2 ABG pO2 ABG HCO3 ABG Total CO2 ABG O2 Saturation ABG Base Excess Nirav Test Respiration Rate O2 Delivery Device O2 Liters/Min Sodium 134 L Potassium 2.9 L Chloride 98 L Carbon Dioxide 24 Anion Gap 12.0 BUN 10 Creatinine 0.9 Estimated GFR (MDRD) 112 Glucose 236 H Lactic Acid Calcium 8.7 Total Bilirubin 2.1 H AST 13 ALT 20 Alkaline Phosphatase 112 Total Protein 7.7 Albumin 4.0 Globulin 3.7 Albumin/Globulin Ratio 1.1 Lipase 26 Urine Color Urine Clarity Urine pH Ur Specific Mabel Urine Protein Urine Glucose (UA) Urine Ketones Urine Occult Blood Urine Nitrite Urine Bilirubin Urine Urobilinogen Ur Leukocyte Esterase Ur Microscopic Review Urine Culture Comments Urine Opiates Screen Ur Oxycodone Screen Urine Methadone Screen Ur Propoxyphene Screen Ur Barbiturates Screen Ur Tricyclics Screen Ur Phencyclidine Scrn Ur Amphetamine Screen U Methamphetamines Scrn U Benzodiazepines Scrn Urine Cocaine Screen U Cannabinoids Screen Group A Strep Rapid POSITIVE H 12/06/19 12/06/19 12/06/19 08:35 08:45 10:15 WBC RBC Hgb Hct MCV MCH MCHC RDW Plt Count MPV Neut # (Auto) Lymph # (Auto) Briscoe # (Auto) Eos # (Auto) Baso # (Auto) Absolute Nucleated RBC Nucleated RBC % Bld Gas Analysis Time 0845 Sample Site LEFT RADIAL ABG pH 7.42 ABG pCO2 39 ABG pO2 140 H ABG HCO3 25.7 ABG Total CO2 27.0 ABG O2 Saturation 99 H ABG Base Excess 1.0 Nirav Test POSITIVE Respiration Rate 29 O2 Delivery Device NASAL CANNULA O2 Liters/Min 3.00 Sodium Potassium Chloride Carbon Dioxide Anion Gap BUN Creatinine Estimated GFR (MDRD) Glucose Lactic Acid 0.7 Calcium Total Bilirubin AST ALT Alkaline Phosphatase Total Protein Albumin Globulin Albumin/Globulin Ratio Lipase Urine Color YELLOW Urine Clarity CLEAR Urine pH 6.0 Ur Specific Mabel 1.010 Urine Protein NEGATIVE Urine Glucose (UA) 100 H Urine Ketones NEGATIVE Urine Occult Blood NEGATIVE Urine Nitrite NEGATIVE Urine Bilirubin NEGATIVE Urine Urobilinogen 0.2 (NORMAL) Ur Leukocyte Esterase NEGATIVE Ur Microscopic Review NOT INDICATED Urine Culture Comments NOT INDICATED Urine Opiates Screen NEGATIVE Ur Oxycodone Screen NEGATIVE Urine Methadone Screen NEGATIVE Ur Propoxyphene Screen NEGATIVE Ur Barbiturates Screen NEGATIVE Ur Tricyclics Screen POSITIVE H Ur Phencyclidine Scrn NEGATIVE Ur Amphetamine Screen POSITIVE H U Methamphetamines Scrn POSITIVE H U Benzodiazepines Scrn POSITIVE H Urine Cocaine Screen NEGATIVE U Cannabinoids Screen POSITIVE H Group A Strep Rapid - Rads (name of study) soft tissue neck Radiology: Prelim report reviewed, Discussed with rads (Concerning for epiglottitis. Recommend CT when patient able to get the imaging), See rad report CT neck and chest Radiology: Prelim report reviewed, Discussed with rads (Swelling of the epiglottis and tonsillar pillars. No abscess.), See rad report PD MEDICAL DECISION MAKING - ED course Complexity details: reviewed results (X-ray initially as he was not able to lay flat for CT would likely enlargement of the epiglottis and tonsillar pillars. Radiology suggested CT), re-evaluated patient (He did have improvement after IM epinephrine and racemic epinephrine along with IV steroids and subsequently antibiotics with a positive strep test), considered differential (Very concerning for impending respiratory failure due to upper airway. He is diaphoretic and in a tripod position. Consider abscess or epiglottitis or a ngioedema), d/w network relations consultant (Phone consultation with Dr. Le education and training coordinator for [facility] who said given the improvement so far with the appropriate treatment that he would not anticipate worsening. He did not feel need for transfer.Treat for strep and continue steroids 4- 10 mg daily for 5 more days) - Critical Care Time(min): 50 Time Includes: Direct patient care, Reassess patient, Coordinate care Data interpretation: Labs, Pulse ox, ABG, CXR Departure - Departure Disposition: ED Place in Observation Clinical Impression: Dyspnea Qualifiers: Dyspnea type: shortness of breath Qualified Code(s): R06.02 - Shortness of breath Acute epiglottitis Qualifiers: Airway obstruction: with obstruction Qualified Code(s): J05.11 - Acute epiglottitis with obstruction Condition: Stable Record reviewed to determine appropriate education?: Yes
[2019-12-06] MEDS ORDERED: SODIUM CHLORIDE 0.9% 1,000 ML IV STA (07:23)
[2019-12-06] MEDS ORDERED: KETOROLAC 30 MG/ML VIAL IVP STA (07:24)
[2019-12-06] MEDS ORDERED: DEXAMETHASONE 10 MG/ML VIAL IVP STA ×2 (07:24→08:27)
[2019-12-06] MEDS ORDERED: IOVERSOL 320 100 ML VIAL IVP ONE ×2 (07:36→13:31)
[2019-12-06 07:49] LABS: BASOPHILS # (AUTO) 0.1 10^3/uL (0.0-0.1); BASOPHILS % (AUTO) 0.3 %; EOSINOPHILS % (AUTO) 0.2 %; HGB - HEMOGLOBIN 12.5 g/dL (14.0-18.0); LYMPHOCYTES # (AUTO) 1.2 10^3/uL (1.5-3.5); LYMPHOCYTES % (AUTO) 5.9 %; MEAN CORPUSCULAR HEMOGLOBIN 28.4 pg (27.0-31.0); MEAN CORPUSCULAR HGB CONC 33.5 g/dL (32.0-36.0); MEAN CORPUSCULAR VOLUME 84.8 fL (80.0-94.0); MONOCYTES # (AUTO) 1.5 10^3/uL (0.0-1.0); MONOCYTES % (AUTO) 7.6 %; NEUTROPHILS # (AUTO) 16.8 10^3/uL (1.5-6.6); NEUTROPHILS % (AUTO) 85.1 %; PLT - PLATELET COUNT 222 10^3/uL (130-450); RED CELL DISTRIBUTION WIDTH 12.8 % (12.0-15.0); WHITE BLOOD COUNT 19.7 x10^3/uL (4.8-10.8)
[2019-12-06] MEDS ORDERED: DILTIAZEM 50 MG/10 ML VIAL IVP ONE (07:49)
[2019-12-06 07:55] LABS: ALBUMIN/GLOBULIN RATIO 1.1 (1.0-2.2); BILIRUBIN,TOTAL 2.1 mg/dL (0.2-1.0); CALCIUM 8.7 mg/dL (8.5-10.3); CREATININE 0.9 mg/dL (0.6-1.2); TOTAL PROTEIN 7.7 g/dL (6.7-8.2)
[2019-12-06] MEDS ORDERED: SODIUM CHLORIDE INHALATION 3 ML NEB INH STA ×2 (07:55→08:42)
[2019-12-06] MEDS ORDERED: RACEPINEPHRINE 2.25% NEB INH STA (07:55)
[2019-12-06] MEDS ORDERED: EPINEPHrine 1 MG/ML AMP IM STA (07:56)
[2019-12-06 08:03] LABS: RAPID STREP SCREEN POSITIVE (Negative)
[2019-12-06] MEDS ORDERED: cefTRIAXone 1 GM VIAL IVP STA (08:26)
[2019-12-06 08:59] LABS: ABG HCO3 25.7 mmol/L (22.0-26.0); ABG OXYGEN SATURATION 99 % (94-98); ABG PCO2 39 mmHg (34-45); ABG PH 7.42 (7.35-7.45); ABG PO2 140 mmHg (80-100)
[2019-12-06 09:00] LABS: ALLEN TEST POSITIVE
--- NOTE | 2019-12-06 09:01 | XRAY Report ---
PROCEDURE: Chest 1 View X-Ray INDICATIONS: dyspnea TECHNIQUE: One view of the chest was acquired. COMPARISON: Two-view chest from 11/04/2015. FINDINGS: Surgical changes and devices: None. Lungs and pleura: No pleural effusions or pneumothorax. Lungs are abnormal with generalized pulmona ry edema and reduced inspiratory volume. Mediastinum: Mediastinal contours appear normal. Heart size is mildly enlarged. Bones and chest wall: No suspicious bony lesions. Overlying soft tissues appear unremarkable. IMPRESSION: Reduced inspiration, mild cardiomegaly, generalized pulmonary edema pattern is relatively prominent. Focal consolidative pneumonia is not seen. No effusion is found. Reviewed by: Deniz Durán MD on 12/06/2019 9:00 AM PDT Approved by: Deniz Durán MD on 12/06/2019 9:00 AM PDT Station ID: [id number]
--- NOTE | 2019-12-06 09:42 | XRAY Report ---
PROCEDURE: Neck Soft Tissue INDICATIONS: dyspnea/pain swallowing TECHNIQUE: 2 views of the neck were acquired. COMPARISON: None FINDINGS: Airway: The airway appears patent. Soft tissues: Mild prominence of the prevertebral soft tissues. The epiglottis appears thickened and indistinct. No soft tissue gas. Bones: No suspicious bony lesions. Visualized cervical spine is normally aligned. IMPRESSION: Question epiglottitis. Above discussed with MIHAI VERGARA at the time of dictation on 12/06/2019 at 0938 hours. Reviewed by: Dante Ch MD on 12/06/2019 9:40 AM PDT Approved by: Dante Ch MD on 12/06/2019 9:40 AM PDT Station ID: [id number]
[2019-12-06 10:25] LABS: MUDS CUTOFF CONCENTRATIONS CUTOFF CONC BELOW:
[2019-12-06 10:26] LABS: BILIRUBIN,URINE NEGATIVE (NEGATIVE); GLUCOSE, URINE (UA) 100 mg/dL (NEGATIVE); KETONES,URINE (UA) NEGATIVE (NEGATIVE); LEUKOCYTE ESTERASE, URINE NEGATIVE (NEGATIVE); NITRITE,URINE NEGATIVE (NEGATIVE); OCCULT BLOOD,URINE NEGATIVE (NEGATIVE); PROTEIN,URINE NEGATIVE (NEGATIVE); UROBILINOGEN,URINE 0.2 (NORMAL) E.U./dL (NORMAL)
--- NOTE | 2019-12-06 10:35 | CT Report ---
PROCEDURE: SOFT TISSUE NECK W INDICATIONS: throat pain and dyspnea CONTRAST: IV CONTRAST: Optiray 320 ml: 100 PO CONTRAST: *NO PO CONTRAST TECHNIQUE: After the administration of intravenous contrast, 3.0 mm axial sections acquired from the sella to th e aortic arch. Additional oblique axial 3.0 mm sections acquired through the pharynx. 3 mm thick co amalia reformats were generated. For radiation dose reduction, the following was used: automated exp osure control, adjustment of mA and/or kV according to patient size. COMPARISON: None. FINDINGS: Image quality: Excellent. Lymph nodes: Reactive, not abnormally enlarged lymph nodes. Vessels: Visualized vasculature appears patent. Neck spaces: There is extensive swelling and edema present involving the left tonsillar pillar, the l eft lateral pharyngeal wall, and edema and swelling involving the epiglottis. There is narrowing of t he airway and deviation of the airway to the right. No fluid collection is present. Reactive lymph no juan m. Glands: The parotid and submandibular glands appear normal. The thyroid is normal in size. Miscellaneous: Visualized brain and orbits appear normal. Lung apices appear clear. Superficial so ft tissues appear normal. Bones: No suspicious bony lesions. Visualized sinuses and mastoids appear unremarkable. IMPRESSION: Edema and swelling involving the left tonsillar pillar, left lateral pharyngeal wall, and epiglottis. Narrowing of the airway and deviation of the airway to the right. Above discussed with Jarret Duque MD at the time of dictation on 12/06/2019 at 1033 hours. Reviewed by: Dante Ch MD on 12/06/2019 10:34 AM PDT Approved by: Dante Ch MD on 12/06/2019 10:34 AM PDT Station ID: [id number]
[2019-12-06 10:36] LABS: CLARITY,URINE CLEAR (CLEAR)
[2019-12-06 10:38] LABS: AMPHETAMINE SCREEN,URINE POSITIVE (NEGATIVE); BENZODIAZEPINES SCREEN, URINE POSITIVE (NEGATIVE); COCAINE SCREEN URINE NEGATIVE (NEGATIVE); METHADONE SCREEN, URINE NEGATIVE (NEGATIVE); METHAMPHETAMINES SCREEN, URINE POSITIVE (NEGATIVE); OPIATE SCREEN, URINE NEGATIVE (NEGATIVE); OXYCODONE SCREEN, URINE NEGATIVE (NEGATIVE); PROPOXYPHENE SCREEN, URINE NEGATIVE (NEGATIVE); TRICYCLIC ANTIDEPRESSANT,URINE POSITIVE (NEGATIVE)
[2019-12-06] MEDS ORDERED: SODIUM CHLORIDE FLUSH 0.9% 10 ML SYRINGE IVP PRN (11:13)
--- NOTE | 2019-12-06 11:32 | CT Report ---
PROCEDURE: CHEST W INDICATIONS: dyspnea, throat pain CONTRAST: IV CONTRAST: Optiray 320 ml: 100 PO CONTRAST: *NO PO CONTRAST TECHNIQUE: After the administration of intravenous contrast, 5 mm thick sections acquired from the pulmonary api sebastien to the posterior costophrenic angles. 7 mm thick coronal MIP reformats were acquired. For radia tion dose reduction, the following was used: automated exposure control, adjustment of mA and/or kV according to patient size. COMPARISON: None. FINDINGS: Image quality: Reduced by large body habitus and relatively prominently reduced inspiratory volume. Lungs and pleura: No definite acute air space opacities but the inspiratory volume is reduced in the body habitus is large. A mild pulmonary edema pattern is present. No pleural effusions or pneumotho rax. Central and peripheral airways are patent and normal in caliber. Mediastinum: Heart size is at the upper limits of normal. No pericardial effusion. No mediastinal or hilar adenopathy by size criteria. Thoracic aorta and central pulmonary arteries are normal in si ze. Esophagus is normal in caliber. No hiatal hernia. Bones and chest wall: No suspicious bony lesions. No vertebral body compression fractures. No axil tamela or supraclavicular adenopathy by size criteria. Thyroid gland appears normal where well seen. Abdomen: Visualized upper abdominal solid organs appear normal. Upper abdominal bowel loops are nor mal in caliber. Surgical clips are noted at the gallbladder fossa margin consistent with prior will cystectomy. IMPRESSION: Heart size at the upper limits of normal, mild pulmonary edema pattern within the lung parenchyma. Th e study is somewhat limited by large body habitus and prominently reduced inspiratory volume. This ca n lead to accentuation of the bronchovascular radiodensity through the lung parenchyma due to atelect asis. Currently a pattern of consolidative pneumonia is not found. No pleural effusion is seen. Note: Plain film imaging of the chest had shown a somewhat "mottled" appearance of the right supracla vicular fossa area, and the scanogram from this study allows clear visualization of that area, docume nting clothing material or possible hair separate from the soft tissues as cause of that appearance. Reviewed by: Deniz Durán MD on 12/06/2019 11:31 AM PDT Approved by: Deniz Durán MD on 12/06/2019 11:31 AM PDT Station ID: [id number]
[2019-12-06] MEDS: NS W/20 MEQ KCL 1,000 ML IV SCH ×2 (12:07→21:39)
--- NOTE | 2019-12-06 12:57 | HISTORY & PHYSICAL EXAMINATION ---
Chief Complaint - Chief Complaint Chief Complaint: per ED note sore throat History of Present Illness - Admitted From Admitted From:: ED - History Obtained From Records Reviewed: Ed physician and ED notes, History obtained from: ED MD and patients Lita by phone,patient falling to sleep during ?s Exam Limitations: Patient falling asleep w/ questions - History of Present Illness HPI Comment/Other: Patient very somnulent at time of my history, history obtained from ED MD Dr. Duque and notes and ) Danay is a 43 yo male with schizophrenia , PTSD, Depression, Anxiety, seizure disorder since childhood on Keppra, morbid obesity (BMI over 40) and hx of drug use who presented to the ED late last night with complainsts of anxiety and tachypneia, Per ED notes, his friend thought he was having an allergic reaction to a marijuana edible he had ~ 1 hr before presenting (Friend gave him Benadryl 100mg hoping that would help). On presentation at that time he was sl tachycardic, 110-113, hypertensive 190/s over 120s. ED gave IV fluid but per notes, patient did not want an IV nor Labs and ordered labs were canceled. He refused IM lorazepam as well. He ultimately went home after getting 1 mg PO ativan. He just wanted to go home, take his seroquel and go to sleep (was offered in ED, but patient aware it makes him drowsy so declined dose in Ed. He left ED in no respiratory distess Devin returned to ED shortly later (~) 2 hours later ) with complaints of progressively worsening sore throat , odynophagia, dysphagia and difficulty breathing, No cough. afebrile In the ED chest exam notable for stridorous sound; He was oxygenating adequately but diaphoretic and tripoding. Correspoding neck imaging showed Extensive swelling and edema involving the L tonsillar pillar, left lateral pharyngeal wall and epiglottis with narrowing of airway and deviation of airway to R. No abscess, reactive nodes. Strep + Dr Duque d/w Dr Le of [facility]; treated for acute epiglotitis after CT with Strep coverage (ceftriaxone) , Dr. Le recommended steroids (got 10 mg IV decadron x 2 in ED) Dr Le advised steroids 4-10 g daily x 5 days. He did not feel there was imminent concern for airway compromise now that he had received treatment and no need to transfer Labs notable notable for WBC 19.7, Urine tox screen + for polysubstance abuse + cannibus, + meth+ Tricyclics + amphetamine, + benzo (from ED ativan) Per , she was only aware he was smoking weed, "used to do meth". She does note if he is + for meth, he pearl did not take his Keppra UA neg Chest CT no acute finding In September 2019 he presented for for dental pain. He was to have had a dental appointment in a few days at that time. not sure if problem ever addressed, not clear if that might be source of strep ()?) Patient sees Dr Luo at [facility] for Schizophrenia, PTSD (traumatic childhood), Depression and Anxiety. 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, History - Past Medical History Cardiovascular: reports: Hypertension Respiratory: reports: Sleep apnea Neuro: reports: None Endocrine/Autoimmune: reports: None GI: reports: None, Diverticulitis : reports: None HEENT: reports: None Psych: reports: Depression, Anxiety, Schizophrenia Musculoskeletal: reports: None, Gout, Other Derm: reports: None MRSA Hx?: No - Past Surgical History General: reports: Cholecystectomy - Family & Social History Family History: Mother: Hypertension, Mental Illness (polysubstance abuse), Father: Cancer (pancreatitic ca; still alive), Hypertension Family History Comment/Other: Lita is his "technical healthcare consultant" but she lives a few doors down. Patient is unemployed, followed at [facility] health Living arrangement: At home Living Situation: Alone - Substance History Use: Uses substance without health or social issues: Tobacco, Amphetamine, Cannabis Abuse: Recurrent use of substance despite neg consequences: Amphetamine, Cannabi s - POLST Patient has POLST: No Meds/Allgy - Home Medications Home Medications: Ambulatory Orders Medication Instructions Recorded Confirmed Prazosin [Minipress] 2 mg PO DAILY 04/08/19 12/07/19 levETIRAcetam [Keppra] 500 mg PO BID #60 tablet 04/08/19 12/07/19 Amoxicillin 500 mg PO BID 8 Days #16 capsule 12/07/19 Dexamethasone [Decadron] 6 mg PO DAILY 4 Days #4 tablet 12/07/19 QUEtiapine [SEROquel] 50 mg PO DAILY 12/07/19 12/07/19 haloperidoL [Haloperidol] 20 mg PO QPM 12/07/19 12/07/19 - Allergies Allergies/Adverse Reactions: Allergies Allergy/AdvReac Type Severity Reaction Status Date / Time No Known Drug Allergies Allergy Verified 12/06/19 06:54 Review of Systems - Constitutional Constitutional: reports: Weight gain (Per 80 lb weight gain in ~ 3 months), Other (Patient very noncontributory at the moment ,somnulent, does arouse to name, answers some questions, states he DID take his Keppra Does feel much better than last nighton presntation. able to give some info re: ROS) - Ears, Nose & Throat Ears, Nose & Throat: reports: Dental pain (Per , unsure if September dental pain had ever been addressed by dentist) - Neurological Neurological: reports: Seizures ( thinks he had a seizure the night before presentation, She states he is normally compliant with his keppra,) - Psychiatric Psychiatric: reports: Other (he is followed at [facility] mental health counseling with Lizzette Red [phone]) Exam - Vital Signs Reviewed Vital Signs: Yes Vital Signs: Vital Signs x48h Temp Pulse Pulse Resp BP BP BP 12/06/19 12:45 123 H 153/105 H 12/06/19 12:30 101 H 161/98 H 12/06/19 12:27 163/103 H 12/06/19 12:22 169/117 H 12/06/19 12:17 158/108 H 12/06/19 12:13 37.0 C 103 H 16 143/103 H 12/06/19 11:35 106 H 96 H 146/83 H 12/06/19 10:06 105 H 20 171/112 H 12/06/19 09:33 110 H 22 131/95 H 12/06/19 08:50 120 H 25 H 157/96 H 12/06/19 08:26 124 H 28 H 153/102 H 12/06/19 08:17 126 H 31 H 157/93 H 12/06/19 08:09 124 H 32 H 154/94 H 12/06/19 08:05 126 H 31 H 12/06/19 07:22 132 H 29 H 143/95 H 12/06/19 06:57 136 H 28 H 154/70 H 12/06/19 06:54 36.6 C 139 H 30 H 224/95 H Pulse Ox 12/06/19 12:45 12/06/19 12:30 12/06/19 12:27 12/06/19 12:22 12/06/19 12:17 12/06/19 12:13 99 12/06/19 11:35 28 L 12/06/19 10:06 98 12/06/19 09:33 100 12/06/19 08:50 98 12/06/19 08:26 99 12/06/19 08:17 100 12/06/19 08:09 100 12/06/19 08:05 12/06/19 07:22 95 12/06/19 06:57 95 12/06/19 06:54 95 - Physical Exam General Appearance: positive: Lethargic, Other (General; obese, somnulent but arousable man with dread locks, mouth breathing, no drooling , no audible stridor, no diaphroesis, Opens eyes but can follow EOM's currently (keeps falling asleep) Venous gas checked ph 7.4) Eyes Bilateral: positive: EOMI (as above unable to determine right now as falls asleep shortly after awakening) ENT: positive: Dry mucous membranes, Other (yellow coating on teeth, Sticks tounge out midline, Does not open mouth wide enough for mildred pharynx exam) Neck: positive: Other (very full neck, not able to appreciate tracheal deviation at this time. No significant lymphadenopathy appreciable Does) Respiratory: positive: No respiratory distress, Breath sounds nml, Other (No stridor, Patient subjectively says breathing feels "good"). negative: Wheezes, Rales Cardiovascular: positive: Regular rate & rhythm, Other (distant heart sounds (habitus) , Peripheral pulses +) Abdomen: positive: Nml bowel sounds, No distention, Other (Morbidly obese). negative: Tenderness Skin: positive: Warm, Dry. 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 also tonsillitis) Source may be a Dental problem but no abscess identified, Possible contribution of inhaled meth? Airway currently not compromised Continue Strep coverage, got Ceftriaxone in ED, full course for strep pharyngitis 4-8 mg / day Decadron x 5 days per ENT (got 20 mg in ED)> will give 8 mg on 12/06 tomorrow follow up with dentist to address source Leukocytoisis likely related to primary problem recheck WBC in AM (but will be spurious with decadron)As above Aspiration precautions Hold PO meds until able to take PO Qualifiers: Airway obstruction: with obstruction Qualified Code(s): J05.11 - Acute epiglottitis with obstruction (2) Drug abuse Conclusion/Plan: Once awake and lucid will check patients motivation to stop, why using, and if seeing his counselor. Will check with [place] at [facility] (3) Seizure disorder Conclusion/Plan: Not sure if wifes reported seizure last night was due to street drugs or sub therapeutic level No seizure activity currrenly, dont know last keppra, Will give 500 IV bid until taking PO (4) Hypokalemia Conclusion/Plan: possibly related to street drug effect last night? replete IV recheck in am (5) Hyperglycemia Conclusion/Plan: Per , no documented DM Will check A1C will be exascerbated by steroid (6) Hypertension, uncontrolled Conclusion/Plan: No corresponding symptoms, no ischemic EKG changes Given marked elevation last night, suspect some of this related to meth, amphetamine THINKS he is supposed to be on an antihypertensive, not on med list (other than clonidine) Will continue to assess, not intervene with agent at the moment, Try to get more infor from patient when drug effect wears off (7) PTSD (post-traumatic stress disorder) Conclusion/Plan: On prazosin at home resume once taking PO (8) Schizophrenia Conclusion/Plan: followed by [facility], will request SW contact in am for follow up Resume haldol, seroquel when taking po Currently somnulent (post meth , and amphetamine use,and 100 mg Benadryl given by friend) - Lab Results Fish Bones: 12/07/19 04:20 12/07/19 04:20 Other Lab Results: BMP admit Na 134 K 2.9 Cl 98 C02 24 BUN/Cr 10/0.9 Gluc 236 A1C 6.3 Ca 8.7 Bii 2.1 AST ALT CBC 12/05 WBC 19.7, 16.8 % neutrophils H/H 12.5/37.3 222 plts ABG 7.42 / 39/140/25.7 UA + glucose , otherwise normal Urine tox screen + Tricyclics, + amphetiamine, + metha+ benzo, + cannibus etoh neg - Diagnostic Imaging Results Diagnostic Imaging Results: positive: Final report reviewed Diagnostic Imaging Results Comments: CT neck; ; Epiglotitis Report reviewed and d/w Dr Duque (who d/w radiology and ENT Extensive swelling and edema involing the L tonsillar pillar, left lateral pharyngeal wall epiglottis; narrowing of airway and deviation of airway to R. No abscess, reactive nodes. Normal thyroid. Parotid and submandibular glands ok. Lung apices clear. Reactive lymph nodes, not anormally enlarged.) Chest CT; Lungs; no definate air space opacity; reduced inspiratory volume Mild pulmonary edema pattern present Heart size upper limits of normal, Mild pulmonary edema pattern in lung parenchyma. No consolidative pneumonia adentified. Body habitus and reduced insp volume can > accentualtion of broncho vasc radiodensity thru parencyma du eto atelectasis - EKG Results EKG Interpreted Independently: Yes EKG Comparison: Other (EKG 7 am today, Sinus Tach ~ 130,Sl Laxis, No acute ischemi cchanges, RBBB,)
[2019-12-06 13:56] LABS: VBG PCO2 41.7 mmHg (41-51); VBG PH 7.4 (7.31-7.41); VBG PO2 73.2 mmHg (25-47); VBG TOTAL CO2 26.5 mmol/L (24-29)
[2019-12-06 13:57] LABS: VBG BASE EXCESS 0.4 mmol/L (-2 - +2)
[2019-12-06] MEDS: POTASSIUM CHLOR 10 MEQ/100 ML 10 MEQ/100 ML BAG IV SCH ×2 (15:38→16:48)
[2019-12-06] MEDS: SODIUM CHLORIDE FLUSH 0.9% 10 ML SYRINGE IVP SCH (15:38)
[2019-12-06] MEDS: levETIRAcetam INJ 500 MG in SODIUM CHLORIDE 0.9% 100ML 100 ML IV SCH (20:01)
[2019-12-06 20:05] LABS: HB2 TOTAL 13.3 g/dL; HEMOGLOBIN A1C 0.6 g/dL; HEMOGLOBIN A1C % 6.3 % (4.6-6.2)
[2019-12-06] MEDS: QUEtiapine 25 MG TABLET PO SCH (21:11)
[2019-12-07] MEDS ORDERED: HALOPERIDOL 5 MG/ML VIAL IVP ONE (00:26)
[2019-12-07] MEDS: SODIUM CHLORIDE FLUSH 0.9% 10 ML SYRINGE IVP SCH ×2 (01:12→09:36)
[2019-12-07 05:31] LABS: MEAN CORPUSCULAR HEMOGLOBIN 29.1 pg (27.0-31.0); MEAN CORPUSCULAR HGB CONC 33.5 g/dL (32.0-36.0); MEAN CORPUSCULAR VOLUME 86.7 fL (80.0-94.0); MEAN PLATELET VOLUME 11.1 fL (7.4-11.4); RED BLOOD COUNT 4.13 10^6/uL (4.70-6.10); RED CELL DISTRIBUTION WIDTH 12.7 % (12.0-15.0); WHITE BLOOD COUNT 23.6 x10^3/uL (4.8-10.8)
[2019-12-07 05:40] LABS: CREATININE 0.8 mg/dL (0.6-1.2)
[2019-12-07 06:17] LABS: CALCIUM 8.9 mg/dL (8.5-10.3)
[2019-12-07 06:32] LABS: HB2 TOTAL 12.4 g/dL; HEMOGLOBIN A1C 0.55 g/dL; HEMOGLOBIN A1C % 6.2 % (4.6-6.2)
[2019-12-07] MEDS: NS W/20 MEQ KCL 1,000 ML IV SCH (07:38)
[2019-12-07] MEDS ORDERED: cefTRIAXone 1 GM in SODIUM CHLORIDE 0.9% MINIBAG 100 ML IV SCH (09:00)
[2019-12-07] MEDS: levETIRAcetam INJ 500 MG in SODIUM CHLORIDE 0.9% 100ML 100 ML IV SCH (09:18)
--- NOTE | 2019-12-07 11:43 | PHARMACY PROGRESS NOTE ---
- Best Possible Medication History Admit Date and Time: 12/06/19 1113 Processed by: Pharmacy Medication History completed: Yes Patient Interview: Completed Secondary Source(s): Pharmacy records (PATIENT INTERVIEWED BY PHARMACY. PATIENT IN AND OUT OF SLEEP. PATIENT WAS ABLE TO CONFIRM MEDICATIONS LISTED), Insurance records As the person ultimately responsible for medication therapy, providers are able to order a medication from an existing home medication list in [facility] via the "Reconcile Routine" prior to Confirmation of that medication by customer support assistant. Such practice is discouraged except when the physician, in their clinical judgment, deems that a medical need exists for a medication without regard to previous use.
[2019-12-07] MEDS: QUEtiapine 25 MG TABLET PO SCH (11:50)
[2019-12-07] MEDS ORDERED: DEXAMETHASONE 4 MG/ML VIAL IVP ONE (14:27)
--- NOTE | 2019-12-07 14:29 | Discharge Plan ---
Discharge Plan Problem Reviewed?: Yes Disposition: Home, Self Care Condition: Stable Prescriptions: Amoxicillin 500 mg PO BID 8 Days #16 capsule Dexamethasone [Decadron] 6 mg PO DAILY 4 Days #4 tablet Diet: Soft (until tolerating regular food) Activity Restrictions: No Restrictions Shower Restrictions: No Driving Restrictions: Yes Weight Bearing: Full Weight Health Concerns: -Epiglottis, swollen epiglottis (cartilage that protects your airway, when inflammed it can obstruct/block your airway) -Strep throat (throat infection caused by streptococcus) It is possible that inhaling hot meth crystals cause the inflammation of the epiglottis or worsened epiglottis from strep throat. DO NOT USE METH, STOP inhaled smoke of any kind (marijuana, tobacco or any) as this heals You are getting 4 more days of steroid (dexamethasone/decadron) to help with the inflammation, AND 8 more days of antibiotic for the strep. (amoxacillin) The prescription for decadron and Amoxacillin are at the [facility] Drug use; your urine showed several drugs, meth, amphetamine, marijuana As above the meth may have caused the "throat tightening and trouble breathing when you came to the ED Contact your mental health counselor rather than using street drugs if feeling anxious Severely elevated blood pressure That was likley related to drug use (200's/ 100's) It is much improved but you still have high blood pressure. (it is still hypertension but not severe) Follow up with PCP (choose a PCP) for blood pressure control Stop meth, speed etc.. High blood pressure can cause stroke, vision loss, heart attack and othe rproblems PTSD, Anxiety, Schizophrenia Resume your home medications (Seroquel, haldol ) The pharmacy found a higher dosing that you stated. (morning and evening dose) You noted that you only take 50 mg Seroquel at night. IF you were taking a morning dose as well continue your prior dosing. We are contacting [facility] to try to arrange follow up Lizzette Red [phone] on Sunday 12/10 1pm by phone call (they will call you ALSO prescriber Arely Gruber will contact you on Sunday 12/10 at 3:30 to discuss medications if any changes needed Seizure Disorder;continue your home keppra dose, it was continued here Plan of Treatment: Complete treatment with steroid and antibiotic to treat the swelling in your throat Follow up with your mental health provider Stop drug use to avoid complications Set up a primary provider Dental appointment to address any cavities No Smoking: If you smoke, Please STOP! Call for help.
[2019-12-07] MEDS ORDERED: DEXAMETHASONE 4 MG/ML VIAL IVP SCH (14:45)
[2019-12-07 15:58] VITALS: BP 162/98
--- NOTE | 2019-12-07 19:01 | DISCHARGE SUMMARY ---
Physician: RASHID Montez DATE OF ADMISSION: 12/06/2019 DATE OF DISCHARGE: 12/07/2019 Patient does not have a primary care provider; however, he was given information to find one. PRINCIPAL DISCHARGE DIAGNOSES 1. Epiglottitis. 2. Strep pharyngitis. 3. Illicit drug use. 4. Acute intoxication after drug use. 5. Schizophrenia. 6. Posttraumatic stress disorder. 7. Depression and anxiety. 8. Seizure disorder. PROCEDURES: None. CONSULTATIONS: None. PERTINENT DIAGNOSTIC FINDINGS 1. IMAGING CT scan of the neck on 12/05 - edema and swelling involving the left tonsillar pillar, left lateral pharyngeal wall, and epiglottis with narrowing of the airway and deviation of the airway to the right. Detail of the neck spaces includes extensive swelling and edema in the region as previously described, with reactive nodes. No fluid collection present. Chest CT, 12/05, no definite airspace opacities, but inspiratory volume reduced due to large body habitus, possible mild pulmonary edema present. No pleural effusion or pneumothorax. Heart size upper limits of normal. Plain film of the neck tissues 12/05, mild prominence of the prevertebral soft tissues with epiglottis appearing thickened and distinct, question epiglottitis. 2. A blood gas in the ER as well as the venous gas and the floor showed normal pH 7.42, pCO2 of 39, pO2 of 140 and CO2 of 25. White count 19.7, hemoglobin and hematocrit 12.5 and 37 respectively; platelets 222,000. On discharge, white count is 23.6. Of note, this does reflect IV Decadron. 3. Chemistries on admission notable for potassium of 2.9; on discharge potassium 3.7. Admission glucose 236; on discharge is 158 with an A1c of 6.2. Lactate on admission 0.7. 4. A urine tox screen was notable for being positive for tricyclics, amphetamine, methamphetamine, benzos, and cannabis. BRIEF HOSPITAL COURSE 1. Epiglottitis. Patient is a 43-year-old male who presented to the emergency room with anxiety and difficulty breathing, diaphoretic, and tripoding. His oxygenation was adequate. Initial oropharynx exam was difficult to obtain. He was sent for imaging, which was concerning for epiglottitis. This was confirmed on CT imaging. ER physician discussed the case with Dr. Le of [facility], who recommended appropriate antibiotic treatment for the positive strep, which has already been identified, as well as corticosteroids of which he already received 20 mg IV in the ED and Dr Le recommended 4-8 mg daily for 5 more days and indicated it would be prudent to monitor patient overnight even though he was improved symptomatically with the Decadron.. He was admitted overnight and was able to tolerate oral intake the following day. He will continue an additional 4 days of 6 mg of Decadron daily, as well as complete a course of oral amoxicillin for a 10-day course of antibiotics for his strep pharyngitis. Of note, the patient had smoked meth. It is very possible that the inhalation of the hot meth crystals was largely pertinent in the precipitating the epiglottitis. 2. Strep pharyngitis. It is unclear what the patient's exposure was. White count on presentation was 19.6. Leukocytosis was continued to increase, that likely reflective steroids for the epiglottitis; however, he is clinically improved. He will finish a total of 10 days of penicillin in the form of amoxicillin. 3. Seizure disorder. Patient had no seizures. He continues on his home Keppra dose and received IV keppra during the hospitalization before tolerating PO. 4. Schizophrenia. Patient continues his home medications of Haldol and Seroquel. (patient denies he is on a morning dose of Seroquel/ just pm 50 mg) Followup has been arranged in the [facility] with Lizzette Mendez. DISCHARGE MEDICATIONS 1. Decadron 6 mg daily for 4 additional days. 2. Amoxicillin 500 mg twice daily for 8 additional days. CONTINUED HOME MEDICATIONS 1. Prazosin 2 mg once daily. 2. Seroquel 50 mg once daily at nighttime. 3. Haldol 20 mg once daily at nighttime. 4. Keppra 500 mg twice daily. FOLLOWUP: Patient is to follow up in the [facility] by phone; they will call him on Sunday 12/10 at 1 p.m. Their phone number is [phone]. Following that 1 p.m. phone call, prescriber Arely Gruber will contact the patient on Sunday 12/10 at 3:30 to go over his medications in case any changes are needed. DISCHARGE PHYSICAL EXAMINATION VITAL SIGNS: Afebrile, heart rate 77-83, blood pressure 138-152 over 78-91, an isolated reading of 183/103; room air oxygenation 97%, respiratory rate 20. GENERAL: Patient is a morbidly obese, black male with dreadlocks who is lying in bed. He is arousable to questions but is generally somnolent; this follows likely his meth use 2 days ago. Again, he does arouse to name and answers questions appropriately including questions for details on his medication dosing. HEENT: His extraocular movements are intact. He is able to open his mouth and demonstrate tolerating oral intake without any drooling. He is able to protect his airway. There is no evidence of stridor. Yellowed teeth LUNGS: His respirations are unlabored and, as noted, room air oxygenation is adequate. Breath sounds are clear and unlabored. No stridor HEART: He has very distant heart sounds periphery is warm, dry, + 2 radial pulses bilaterally No edema. ABDOMEN: Obese with no tenderness to palpation. Patient is tolerating oral intake. Patient is not visualized walking; however, he does move easily in bed [id number]. Patient was given information also to choose a primary care provider in the area. cc: [facility]: phone: [phone]; fax: TD: 12/07/2019 16:17 DENAE
[2019-12-07] MEDS ORDERED: levETIRAcetam 250 MG TABLET PO SCH (21:00)
== END 2019-12-07 16:30 | disposition home or self-care (01) ==
LOC: EDUNIT# → ED 06:48 → MS3 11:13 → MS2 17:55
PROVIDERS: ADMIT Nurse Practitioner; ATTEND Nurse Practitioner
DX: J05.11 Acute epiglottitis with obstruction (principal); J02.0 Streptococcal pharyngitis; G40.909 Epilepsy, unspecified, not intractable, without status epilepticus; F12.10 Cannabis abuse, uncomplicated; F15.129 Other stimulant abuse with intoxication, unspecified; E66.01 Morbid (severe) obesity due to excess calories; F32.9 Major depressive disorder, single episode, unspecified; F41.9 Anxiety disorder, unspecified; F43.10 Post-traumatic stress disorder, unspecified; F17.200 Nicotine dependence, unspecified, uncomplicated; F20.9 Schizophrenia, unspecified; E87.6 Hypokalemia; I10 Essential (primary) hypertension; R73.9 Hyperglycemia, unspecified; Z68.41 Body mass index [BMI] 40.0-44.9, adult; T40.7X1A Poisoning by cannabis (derivatives), accidental (unintentional), initial encounter; R06.00 Dyspnea, unspecified; Y92.009 Unspecified place in unspecified non-institutional (private) residence as the place of occurrence of the external cause
CPT/HCPCS: 36415; 36600; 70360; 70491; 71045; 71260; 80048; 80053; 80306; 81003; 82803; 83036; 83605; 83690; 85025; 85027; 87430; 93005; 94640; 96361; 96365; 96366; 96367; 96368; 96372; 96375; 96376; 99283; 99284; 99291; A9270; G0378; J8499; Q9967; 80307; 80320; 81001; 82550; 82553; 87086; 94770

== ENCOUNTER 2020-01-09 17:34 | Outpatient (CLI) | payer MEDICAID | END 2020-01-09 17:35 | disposition critical access hospital (66) | LOC: EMS 17:34 | PROVIDERS: ATTEND Surgery | DX: R41.82 Altered mental status, unspecified (principal); R06.4 Hyperventilation; R61 Generalized hyperhidrosis | CPT/HCPCS: A0425; A0427; A0999 ==

== ENCOUNTER 2020-01-09 17:55 | Emergency (ER) | payer MEDICAID ==
--- NOTE | 2020-01-09 19:09 | ED Physician Documentation ---
History of Present Illness - Stated complaint Stated Complaint: PANIC ATTACK - Chief complaint Chief Complaint: General - History obtained from History obtained from: Patient, EMS - History of Present Illness Timing: Prior to arrival - Additonal information Additional information: 44-year-old male brought into the ER via ambulance when he began having a panic attack at home. He reports to me that he just found out that he and his family must vacate their residence by 24 January. He states that is why he had a panic attack. EMS gave this gentleman 2 mg of Versed in route. Patient was initially sleepy when he first arrived to the emergency department but after approximately 1 hour he was alert and oriented. Patient reports that he is ready for discharge home right now. He denies that he has thoughts of self-harm. Denies drug or alcohol use His medication regimen includes Seroquel, Haldol and prazosin. He states he has adequate meds at home Review of Systems Constitutional: reports: Reviewed and negative Eyes: reports: Reviewed and negative Throat: reports: Reviewed and negative Cardiac: reports: Reviewed and negative Respiratory: reports: Reviewed and negative GI: reports: Reviewed and negative : reports: Reviewed and negative Skin: reports: Reviewed and negative Musculoskeletal: reports: Reviewed and negative Neurologic: reports: Reviewed and negative Psychiatric: reports: Anxiety Endocrine: reports: Reviewed and negative PD PAST MEDICAL HISTORY - Past Medical History Past Medical History: Yes Cardiovascular: Hypertension Respiratory: Sleep apnea Neuro: None Endocrine/Autoimmune: None GI: None, Diverticulitis : None HEENT: None Psych: Depression, Anxiety, Schizophrenia Musculoskeletal: None, Gout, Other Derm: None - Past Surgical History Past Surgical History: Yes General: Cholecystectomy - Present Medications Home Medications: Ambulatory Orders Medication Instructions Recorded Confirmed Prazosin [Minipress] 2 mg PO DAILY 04/08/19 12/07/19 levETIRAcetam [Keppra] 500 mg PO BID #60 tablet 04/08/19 12/07/19 Amoxicillin 500 mg PO BID 8 Days #16 capsule 12/07/19 Dexamethasone [Decadron] 6 mg PO DAILY 4 Days #4 tablet 12/07/19 QUEtiapine [SEROquel] 50 mg PO DAILY 12/07/19 12/07/19 haloperidoL [Haloperidol] 20 mg PO QPM 12/07/19 12/07/19 - Allergies Allergies/Adverse Reactions: Allergies Allergy/AdvReac Type Severity Reaction Status Date / Time No Known Drug Allergies Allergy Verified 01/09/20 18:09 - Social History Does the pt smoke?: Yes Smoking Status: Current every day smoker Does the pt drink ETOH?: Yes Does the pt have substance abuse?: Yes - Immunizations Immunizations are current?: Yes Immunizations: TDAP current <10years - POLST Patient has POLST: No PD ED PE NORMAL - General General: Alert and oriented X 3, No acute distress, Other (obese) - HEENT HEENT: PERRL - Neck Neck: Supple, no meningeal sign - Cardiac Cardiac: RRR, No murmur - Respiratory Respiratory: Clear bilaterally - Abdomen Abdomen: Normal bowel sounds, Soft, Non tender, Non distended - Derm Derm: Warm and dry - Extremities Extremities: No deformity - Neuro Neuro: Alert and oriented X 3, hamper maker machine 2-12 intact, No motor deficit Eye Opening: Spontaneous Motor: Obeys Commands Verbal: Oriented GCS Score: 15 - Psych Psych: Normal mood (Reports anxiety but is no longer having panic), Normal affect Results - Vitals Vitals: Vital Signs - 24 hr 01/09/20 17:58 Temperature 36.4 C L Heart Rate 93 Respiratory 24 Rate Blood Pressure 148/103 H O2 Saturation 99 Oxygen O2 Source Room air PD MEDICAL DECISION MAKING - ED course Complexity details: reviewed results, considered differential, d/w patient ED course: [facility] department via EMS when he began having a panic attack at home as he recently found out that he and his family are being displaced. EMS gave him 2 mg of Versed. He did sleep for the first part of his ER visit here but when he woke up he was calm and cooperative. He had no thoughts of self-harm and he reports that he is ready for discharge home. He does report that he has adequate Seroquel prazosin and Haldol at home. There are no other acute emergent medical needs and he has ambulated safely. Departure - Departure Disposition: 01 Home, Self Care Clinical Impression: Panic attack Condition: Stable Record reviewed to determine appropriate education?: Yes Instructions: ED Panic Attack Comments: I wish you and your family luck on your journey. It is important that you continue to take your other medications as already prescribed. You were given Versed by the EMS which seems to have brought your panic attack under control. If at any point you feel unsafe or have thoughts of self-harm please return to the ER
[2020-01-09 19:18] VITALS: BP 144/78
== END 2020-01-09 19:18 | disposition home or self-care (01) ==
LOC: EDUNIT# → ED 17:55
DX: F41.0 Panic disorder [episodic paroxysmal anxiety] (principal); I10 Essential (primary) hypertension; F17.200 Nicotine dependence, unspecified, uncomplicated
CPT/HCPCS: 99283